=== PATIENT | male | born 1945 | race Caucasian/White ===

== ENCOUNTER 2019-06-10 09:18 | Outpatient (CLI) | payer MEDICARE ==
[~2019-06-10 09:18] MED LIST: ALLO100T30 PO; ASPI-496 PO; CLOP75TA PO; COLC0.6T37 PO; HYDR-3240 PO; LISI30TA4 PO; LISI40TA PO; METF500T17 PO; OMEG1CAP23 PO; SIMV40TA3 PO
== END 2019-06-10 23:59 | disposition home or self-care (01) ==
LOC: CVU 09:18
PROVIDERS: ATTEND Internal Medicine Cardiovascular Disease
DX: I08.8 Other rheumatic multiple valve diseases (principal); I77.89 Other specified disorders of arteries and arterioles; E78.5 Hyperlipidemia, unspecified; E11.9 Type 2 diabetes mellitus without complications; I10 Essential (primary) hypertension; I11.9 Hypertensive heart disease without heart failure; Z87.891 Personal history of nicotine dependence; Z83.3 Family history of diabetes mellitus; Z82.49 Family history of ischemic heart disease and other diseases of the circulatory system
CPT/HCPCS: 93306

== ENCOUNTER 2019-12-02 11:59 | Emergency (ER) | payer MEDICARE ==
[~2019-12-02] VITALS: Ht 170.2 cm; Wt 71.3 kg
[~2019-12-02 11:59] MED LIST changes: +SIMV40TA20 PO; -SIMV40TA3 PO
--- NOTE | 2019-12-02 12:49 | NUR ---
LAB IN TO DRAW. PT ASX AT THIS TIME. CALL LIGHT WITHIN REACH.,
[2019-12-02 12:53] LABS: BASOPHILS # (AUTO) 0.06 x10^3/uL (0-0.1); BASOPHILS % (AUTO) 1 % (0-1); EOSINOPHILS # (AUTO) 0.24 x10^3/uL (0-0.4); EOSINOPHILS % (AUTO) 4 % (1-7); LYMPHOCYTES # (AUTO) 1.63 x10^3/uL (1-3.4); LYMPHOCYTES % (AUTO) 25 % (22-44); MD NO; MEAN CORPUSCULAR HEMOGLOBIN 30.1 pg (27.5-34.5); MEAN CORPUSCULAR HGB CONC 32.8 g/dL (33.2-36.2); MEAN CORPUSCULAR VOLUME 91.9 fL (81-97); MEAN PLATELET VOLUME 9.8 fL (7.4-10.4); MONOCYTES # (AUTO) 0.47 x10^3/uL (0.2-0.8); MONOCYTES % (AUTO) 7 % (2-9); NEUTROPHILS # (AUTO) 4.02 x10^3/uL (1.8-6.8); NEUTROPHILS % (AUTO) 63 % (42-75); PLATELET COUNT 157 x10^3/uL (130-400); RED BLOOD COUNT 4.35 x10^6/uL (4.38-5.82); RED CELL DISTRIBUTION WIDTH 15.2 % (9.4-14.8)
[2019-12-02] MEDS ORDERED: SODIUM CHLORIDE FLUSH 10ML SYR IVF ONE (13:00)
[2019-12-02 13:06] LABS: ALANINE AMINOTRANSFERASE 24 U/L (12-78); ALBUMIN 3.9 g/dL (3.4-5.0); ANION GAP 6 mmol/L (5-15); CALCIUM 9.2 mg/dL (8.5-10.1); CHLORIDE 117 mmol/L (98-107); CREATININE 1.49 mg/dL (0.7-1.3)
[2019-12-02 13:08] LABS: ALKALINE PHOSPHATASE 63 U/L (45-117); BILIRUBIN,TOTAL 0.3 mg/dL (0.2-1.0); TOTAL PROTEIN 7.8 g/dL (6.4-8.2)
[2019-12-02 13:18] VITALS: BP 154/66
--- NOTE | 2019-12-02 13:18 | NUR ---
URINE COLLECTED, SENT TO LAB. CALL LIGHT WITHIN REACH.
--- NOTE | 2019-12-02 13:20 | NUR ---
ALL BLOOD TEST RESULTS BACK, UA PENDING. PT FOR RECHECK.
[2019-12-02 13:23] LABS: MICROSCOPIC NOT IND
[2019-12-02 13:26] LABS: CULTURE INDICATED? NO
--- NOTE | 2019-12-02 13:41 | NUR ---
PT UPDATED ON LAB RESULTS AND POC. IV PLACED, NS BOLUS INFUSING. CALL LIGHT WITHIN REACH.
--- NOTE | 2019-12-02 13:46 | NUR ---
REPORT GIVEN, TRANSFER OF CARE AT THIS TIME.
--- NOTE | 2019-12-02 13:48 | NUR ---
REPORT RECEIVED FROM JAMAICA LASSITER. PT RESTING ON S B E, CONNECTED TO MONITORING. CALL LIGHT IN REACH.
[2019-12-02] MEDS ORDERED: SODIUM CHLORIDE 0.9% 1,000ML IVBOLUS ONE (14:00)
--- NOTE | 2019-12-02 14:44 | NUR ---
PT AMBULATED TO THE BR W/ A STEADY GAIT.
== END 2019-12-02 14:52 | disposition home or self-care (01) ==
LOC: ED 13:01
DX: E87.5 Hyperkalemia (principal); I10 Essential (primary) hypertension; E11.9 Type 2 diabetes mellitus without complications; R94.31 Abnormal electrocardiogram [ECG] [EKG]
CPT/HCPCS: 36415; 80053; 81003; 85025; 93005; 99284; J7030

== ENCOUNTER → 2020-05-12 | Outpatient (CLI) | payer MEDICARE | END | disposition home or self-care (01) | LOC: CFH 09:00 | PROVIDERS: ATTEND Internal Medicine Cardiovascular Disease | DX: I08.1 Rheumatic disorders of both mitral and tricuspid valves (principal); I11.9 Hypertensive heart disease without heart failure | CPT/HCPCS: 93306 ==

== ENCOUNTER → 2020-10-17 | Outpatient (CLI) | payer MEDICARE ==
[~2020-10-17] MED LIST changes: +HYDR-1067 PO; -HYDR-3240 PO; -LISI40TA PO; +LISI40TA9 PO
== END | disposition home or self-care (01) ==
LOC: CFH 09:27
DX: Z12.2 Encounter for screening for malignant neoplasm of respiratory organs (principal); Z95.2 Presence of prosthetic heart valve; Z87.891 Personal history of nicotine dependence
CPT/HCPCS: 71271